=== PATIENT | female | born 1960 | race Two or more races ===

== ENCOUNTER → 2017-08-19 | Emergency (ER) | payer OTHER ==
[~2017-08-19] VITALS: Ht 157.5 cm; Wt 54.4 kg
[~2017-08-19] MED LIST: CIPRO500 MG PO; DOLOGEN CAPLET1 EACH PO; KETO10TA2 PO; VASOTEC5 MG PO
== END | disposition home or self-care (01) ==
LOC: ER 01:23
DX: N39.0 Urinary tract infection, site not specified (principal); R10.31 Right lower quadrant pain

== ENCOUNTER 2017-11-19 08:42 | Outpatient (CLI) | payer OTHER | END 2017-11-19 08:57 | disposition home or self-care (01) | LOC: MAMO-SONO 08:42 → RAD 08:42 | DX: Z12.31 Encounter for screening mammogram for malignant neoplasm of breast (principal); N60.19 Diffuse cystic mastopathy of unspecified breast; R10.30 Lower abdominal pain, unspecified; E04.1 Nontoxic single thyroid nodule; D12.0 Benign neoplasm of cecum; C18.0 Malignant neoplasm of cecum; K92.1 Melena; Z86.010 Personal history of colon polyps ==

== ENCOUNTER 2017-11-25 12:15 | Inpatient (IN) | payer OTHER ==
[~2017-11-25] VITALS: Ht 157.5 cm; Wt 40.8 kg
[2017-11-26] MEDS ORDERED: TOPROL XL25 M1 PO (12:47)
[2017-11-26] MEDS ORDERED: CRESTOR10 MG PO (12:47)
[2017-11-26] MEDS ORDERED: VASOTEC2.5 MG PO (12:47)
== END 2017-12-16 12:43 | disposition home or self-care (01) | DRG 329 ==
LOC: SURG 12-02 05:35 → O/R 12-02 05:35 → SURG 12-02 07:00 → SURH 12-02 10:24 → SURG 12-02 12:02
PROVIDERS: Colon & Rectal Surgery
PROC: 07TC4ZZ Resection of Pelvis Lymphatic, Percutaneous Endoscopic Approach (ICD-10-PCS; 2017-12-02)
PROC: 0DTU4ZZ Resection of Omentum, Percutaneous Endoscopic Approach (ICD-10-PCS; 2017-12-02)
PROC: 0DTF4ZZ Resection of Right Large Intestine, Percutaneous Endoscopic Approach (ICD-10-PCS; principal; 2017-12-02 07:00)
PROC: 4A033R1 Measurement of Arterial Saturation, Peripheral, Percutaneous Approach (ICD-10-PCS; 2017-12-05)
PROC: BB24YZZ Computerized Tomography (CT Scan) of Bilateral Lungs using Other Contrast (ICD-10-PCS; 2017-12-05)
PROC: 3E0F7GC Introduction of Other Therapeutic Substance into Respiratory Tract, Via Natural or Artificial Opening (ICD-10-PCS; 2017-12-05)
PROC: 3E0336Z Introduction of Nutritional Substance into Peripheral Vein, Percutaneous Approach (ICD-10-PCS; 2017-12-06)
PROC: BW21ZZZ Computerized Tomography (CT Scan) of Abdomen and Pelvis (ICD-10-PCS; 2017-12-07)
PROC: 02HV33Z Insertion of Infusion Device into Superior Vena Cava, Percutaneous Approach (ICD-10-PCS; 2017-12-08)
DX: D12.0 Benign neoplasm of cecum (principal); A41.9 Sepsis, unspecified organism; N39.0 Urinary tract infection, site not specified; J95.89 Other postprocedural complications and disorders of respiratory system, not elsewhere classified; J98.11 Atelectasis; K56.690 Other partial intestinal obstruction; B37.89 Other sites of candidiasis; D12.1 Benign neoplasm of appendix; D12.2 Benign neoplasm of ascending colon; F17.210 Nicotine dependence, cigarettes, uncomplicated; R09.02 Hypoxemia; B95.2 Enterococcus as the cause of diseases classified elsewhere

== ENCOUNTER 2017-12-17 16:38 | Inpatient (IN) | payer OTHER ==
[~2017-12-17] VITALS: Ht 157.5 cm; Wt 53.5 kg
[~2017-12-17 16:38] MED LIST changes: +CRESTOR10 MG PO; +TOPROL XL25 M1 PO; +VASOTEC2.5 MG PO
[2018-01-02] MEDS ORDERED: CRESTOR10 MG PO (14:54)
[2018-01-02] MEDS ORDERED: TOPROL XL25 M1 PO (14:54)
[2018-01-02] MEDS ORDERED: Intestinex CAP PO (14:54)
[2018-01-02] MEDS ORDERED: PREVACID30 MG PO (14:54)
== END 2018-01-02 15:59 | disposition home or self-care (01) | DRG 390 ==
LOC: ER 16:38 → SEC-K 22:33 → SURG 22:33 → SURH 12-20 10:11 → SURG 12-20 10:24 → SURH 12-20 10:24
PROC: BW21ZZZ Computerized Tomography (CT Scan) of Abdomen and Pelvis (ICD-10-PCS; 2017-12-17)
PROC: 02HV33Z Insertion of Infusion Device into Superior Vena Cava, Percutaneous Approach (ICD-10-PCS; 2017-12-18)
PROC: 3E0436Z Introduction of Nutritional Substance into Central Vein, Percutaneous Approach (ICD-10-PCS; 2017-12-18)
PROC: 0DJD8ZZ Inspection of Lower Intestinal Tract, Via Natural or Artificial Opening Endoscopic (ICD-10-PCS; principal; 2017-12-19)
PROC: 0DB68ZX Excision of Stomach, Via Natural or Artificial Opening Endoscopic, Diagnostic (ICD-10-PCS; 2017-12-24)
DX: K91.31 Postprocedural partial intestinal obstruction (principal); Y83.6 Removal of other organ (partial) (total) as the cause of abnormal reaction of the patient, or of later complication, without mention of misadventure at the time of the procedure; Y92.098 Other place in other non-institutional residence as the place of occurrence of the external cause; I11.9 Hypertensive heart disease without heart failure; F17.210 Nicotine dependence, cigarettes, uncomplicated; R09.02 Hypoxemia; K25.9 Gastric ulcer, unspecified as acute or chronic, without hemorrhage or perforation; J00 Acute nasopharyngitis [common cold]; K52.89 Other specified noninfective gastroenteritis and colitis

== ENCOUNTER 2018-01-22 18:29 | Inpatient (IN) | payer OTHER ==
[~2018-01-22] VITALS: Ht 160 cm; Wt 59.0 kg
[~2018-01-22 18:29] MED LIST changes: -VASOTEC2.5 MG
[2018-01-22] MEDS ORDERED: VASOTEC2.5 MG (19:13)
[2018-04-13] MEDS ORDERED: TOPROL XL25 M1 PO (14:20)
[2018-04-13] MEDS ORDERED: IMODIUM A-D2 M2 PO (14:20)
[2018-04-13] MEDS ORDERED: PYRIDOXINE HCL100 M1 PO (14:20)
[2018-04-13] MEDS ORDERED: PROTONIX40 MG PO (14:20)
[2018-04-13] MEDS ORDERED: CHOLESTYRAMINE P4 GM PO (14:20)
[2018-04-13] MEDS ORDERED: Intestinex CAP PO (14:20)
[2018-04-13] MEDS ORDERED: SLOW-MAG64 M1 PO (14:20)
[2018-04-13] MEDS ORDERED: FOLIC ACID1 MG PO (14:20)
[2018-04-13] MEDS ORDERED: PRE PROTEIN 2030 ML PO (14:20)
[2018-04-13] MEDS ORDERED: CEFDINIR300 MG PO (14:20)
[2018-04-13] MEDS ORDERED: MOTOFEN 1-0.021 EACH PO (14:20)
[2018-04-13] MEDS ORDERED: VASOTEC2.5 MG PO (14:20)
== END 2018-04-13 15:12 | disposition home or self-care (01) | DRG 329 ==
LOC: ER 18:29 → SURH 19:50 → SEC-K 19:50 → MEDJ 21:49 → SURH 01-23 19:50
PROVIDERS: Colon & Rectal Surgery
PROC: 02HV33Z Insertion of Infusion Device into Superior Vena Cava, Percutaneous Approach (ICD-10-PCS; 2018-01-23)
PROC: 0W9G30Z Drainage of Peritoneal Cavity with Drainage Device, Percutaneous Approach (ICD-10-PCS; 2018-01-24)
PROC: 8E0ZXY6 Isolation (ICD-10-PCS; 2018-01-26)
PROC: BW25Y0Z Computerized Tomography (CT Scan) of Chest, Abdomen and Pelvis using Other Contrast, Unenhanced and Enhanced (ICD-10-PCS; 2018-01-29)
PROC: 3E0436Z Introduction of Nutritional Substance into Central Vein, Percutaneous Approach (ICD-10-PCS; 2018-01-30)
PROC: BW25Y0Z Computerized Tomography (CT Scan) of Chest, Abdomen and Pelvis using Other Contrast, Unenhanced and Enhanced (ICD-10-PCS; 2018-02-05)
PROC: BW11YZZ Fluoroscopy of Abdomen and Pelvis using Other Contrast (ICD-10-PCS; 2018-02-11)
PROC: BW21Y0Z Computerized Tomography (CT Scan) of Abdomen and Pelvis using Other Contrast, Unenhanced and Enhanced (ICD-10-PCS; 2018-02-12)
PROC: 0D1B4Z4 Bypass Ileum to Cutaneous, Percutaneous Endoscopic Approach (ICD-10-PCS; 2018-02-24)
PROC: 0DTE4ZZ Resection of Large Intestine, Percutaneous Endoscopic Approach (ICD-10-PCS; principal; 2018-02-24 14:30)
PROC: 02H633Z Insertion of Infusion Device into Right Atrium, Percutaneous Approach (ICD-10-PCS; 2018-02-26)
PROC: BW25Y0Z Computerized Tomography (CT Scan) of Chest, Abdomen and Pelvis using Other Contrast, Unenhanced and Enhanced (ICD-10-PCS; 2018-03-05)
PROC: 0W9G30Z Drainage of Peritoneal Cavity with Drainage Device, Percutaneous Approach (ICD-10-PCS; 2018-03-07)
PROC: BW25Y0Z Computerized Tomography (CT Scan) of Chest, Abdomen and Pelvis using Other Contrast, Unenhanced and Enhanced (ICD-10-PCS; 2018-03-12)
PROC: BD14YZZ Fluoroscopy of Colon using Other Contrast (ICD-10-PCS; 2018-03-25)
PROC: BW40ZZZ Ultrasonography of Abdomen (ICD-10-PCS; 2018-03-30)
PROC: 0DQB4ZZ Repair Ileum, Percutaneous Endoscopic Approach (ICD-10-PCS; 2018-04-02)
PROC: BW25Y0Z Computerized Tomography (CT Scan) of Chest, Abdomen and Pelvis using Other Contrast, Unenhanced and Enhanced (ICD-10-PCS; 2018-04-06)
PROC: 0W9J3ZX Drainage of Pelvic Cavity, Percutaneous Approach, Diagnostic (ICD-10-PCS; 2018-04-09)
DX: K91.89 Other postprocedural complications and disorders of digestive system (principal); K65.1 Peritoneal abscess; T81.4XXA Infection following a procedure, initial encounter; B37.89 Other sites of candidiasis; K63.2 Fistula of intestine; B37.49 Other urogenital candidiasis; L02.211 Cutaneous abscess of abdominal wall; Y83.6 Removal of other organ (partial) (total) as the cause of abnormal reaction of the patient, or of later complication, without mention of misadventure at the time of the procedure; Y92.098 Other place in other non-institutional residence as the place of occurrence of the external cause; Z90.49 Acquired absence of other specified parts of digestive tract; F17.210 Nicotine dependence, cigarettes, uncomplicated; I11.9 Hypertensive heart disease without heart failure; B96.1 Klebsiella pneumoniae [K. pneumoniae] as the cause of diseases classified elsewhere; B96.4 Proteus (mirabilis) (morganii) as the cause of diseases classified elsewhere; B95.2 Enterococcus as the cause of diseases classified elsewhere; K25.9 Gastric ulcer, unspecified as acute or chronic, without hemorrhage or perforation; E88.09 Other disorders of plasma-protein metabolism, not elsewhere classified; R33.8 Other retention of urine; K52.89 Other specified noninfective gastroenteritis and colitis; D64.89 Other specified anemias

== ENCOUNTER → 2018-01-22 | Outpatient (CLI) | payer OTHER ==
[~2018-01-22] MED LIST changes: +Intestinex CAP PO; +PREVACID30 MG PO; +VASOTEC2.5 MG
== END | disposition home or self-care (01) ==
LOC: TOM 09:39
DX: R10.31 Right lower quadrant pain (principal); Z86.010 Personal history of colon polyps; K25.3 Acute gastric ulcer without hemorrhage or perforation; R19.7 Diarrhea, unspecified

== ENCOUNTER → 2018-05-29 09:03 | Outpatient (CLI) | payer OTHER ==
[~2018-05-29 09:03] MED LIST changes: +CEFDINIR300 MG PO; +CHOLESTYRAMINE P4 GM PO; +FOLIC ACID1 MG PO; +IMODIUM A-D2 M2 PO; +MOTOFEN 1-0.021 EACH PO; +PRE PROTEIN 2030 ML PO; +PROTONIX40 MG PO; +PYRIDOXINE HCL100 M1 PO; +SLOW-MAG64 M1 PO; +VASOTEC2.5 MG
== END | disposition home or self-care (01) ==
LOC: LAB 09:03
DX: I11.9 Hypertensive heart disease without heart failure (principal); E11.9 Type 2 diabetes mellitus without complications; K65.1 Peritoneal abscess; K91.89 Other postprocedural complications and disorders of digestive system

== ENCOUNTER 2018-05-29 11:17 | Outpatient (CLI) | payer OTHER | END 2018-05-29 11:41 | disposition home or self-care (01) | LOC: TOM 11:17 | DX: K65.1 Peritoneal abscess (principal); K91.89 Other postprocedural complications and disorders of digestive system ==

== ENCOUNTER 2018-06-30 09:12 | Outpatient (CLI) | payer OTHER | END 2018-06-30 09:28 | disposition home or self-care (01) | LOC: NUCLEAR 09:12 | DX: C90.00 Multiple myeloma not having achieved remission (principal); M19.90 Unspecified osteoarthritis, unspecified site; M81.0 Age-related osteoporosis without current pathological fracture | CPT/HCPCS: 77080; 78306; A9503 ==

== ENCOUNTER 2018-11-04 07:47 | Outpatient (CLI) | payer OTHER ==
[~2018-11-04] VITALS: Ht 157.5 cm; Wt 54.4 kg
[2018-11-04] MEDS ORDERED: FLONASE16 GM NASAL (09:28)
[2018-11-04] MEDS ORDERED: CLARITIN10 MG PO (09:28)
[2018-11-04] MEDS ORDERED: DERMOTIC20 ML OTIC (09:28)
== END 2018-11-04 08:05 | disposition home or self-care (01) ==
LOC: OFIC 805 07:47
DX: L29.9 Pruritus, unspecified (principal); J31.0 Chronic rhinitis

== ENCOUNTER 2018-12-31 12:31 | Outpatient (CLI) | payer OTHER ==
[~2018-12-31 12:31] MED LIST changes: +CLARITIN10 MG PO; +DERMOTIC20 ML OTIC; +FLONASE16 GM NASAL
== END 2019-01-02 10:43 | disposition home or self-care (01) ==
LOC: MAMO-SONO 12:31
DX: Z12.31 Encounter for screening mammogram for malignant neoplasm of breast (principal); N60.19 Diffuse cystic mastopathy of unspecified breast

== ENCOUNTER → 2019-04-23 | Day surgery (SDC) | payer OTHER | END | disposition home or self-care (01) | LOC: ADM 04-19 15:00 → AMB-ENDOS 05:20 | DX: K29.60 Other gastritis without bleeding (principal); K63.5 Polyp of colon; K64.2 Third degree hemorrhoids ==

== ENCOUNTER 2020-08-12 01:32 | Emergency (ER) | payer OTHER ==
[~2020-08-12] VITALS: Ht 157.5 cm; Wt 58.1 kg
[2020-08-12] MEDS ORDERED: KETO10TA2 PO (06:45)
[2020-08-12] MEDS ORDERED: NORFLEX100MG PO (06:45)
[2020-08-12] MEDS ORDERED: HORIZANT300 MG PO (06:45)
== END 2020-08-12 07:00 | disposition home or self-care (01) ==
LOC: ER 01:32
DX: M54.5 Low back pain (principal)

== ENCOUNTER 2021-11-20 19:45 | Emergency (ER) | payer OTHER ==
[~2021-11-20] VITALS: Ht 157.5 cm; Wt 68.9 kg
[~2021-11-20 19:45] MED LIST changes: +HORIZANT300 MG PO; +NORFLEX100MG PO
== END 2021-11-21 00:05 | disposition home or self-care (01) ==
LOC: ER 19:45
DX: N23 Unspecified renal colic (principal); R11.10 Vomiting, unspecified; Z88.2 Allergy status to sulfonamides

== ENCOUNTER 2021-11-28 07:28 | Outpatient (CLI) | payer OTHER | END 2021-11-28 07:30 | disposition home or self-care (01) | LOC: RAD 07:28 | PROVIDERS: ATTEND Urology | DX: Z01.818 Encounter for other preprocedural examination (principal) ==

== ENCOUNTER 2022-07-25 15:55 | Outpatient (CLI) | payer OTHER | END 2022-07-25 16:06 | disposition home or self-care (01) | LOC: TOM 15:55 | PROVIDERS: ATTEND Family Medicine | DX: N20.0 Calculus of kidney (principal) ==

== ENCOUNTER → 2022-07-30 | Outpatient (CLI) | payer OTHER | END | disposition home or self-care (01) | LOC: SONOGRAMA 13:54 | PROVIDERS: ATTEND Family Medicine | DX: N20.2 Calculus of kidney with calculus of ureter (principal) ==

== ENCOUNTER 2023-01-14 08:56 | Outpatient (CLI) | payer OTHER | END 2023-01-14 09:05 | disposition home or self-care (01) | LOC: SONOGRAMA 08:56 | PROVIDERS: ATTEND Internal Medicine | DX: M25.561 Pain in right knee (principal) ==

== ENCOUNTER 2023-10-23 08:15 | Outpatient (CLI) | payer OTHER | END 2023-10-23 08:25 | disposition home or self-care (01) | LOC: SONOGRAMA 08:15 | PROVIDERS: ATTEND Family Medicine | DX: M77.11 Lateral epicondylitis, right elbow (principal) ==

== ENCOUNTER 2024-09-29 07:33 | Outpatient (CLI) | payer OTHER | END 2024-09-29 07:40 | disposition home or self-care (01) | LOC: MAMO-SONO 07:33 | PROVIDERS: ATTEND Family Medicine | DX: N60.11 Diffuse cystic mastopathy of right breast (principal); N60.12 Diffuse cystic mastopathy of left breast; R10.84 Generalized abdominal pain; K43.2 Incisional hernia without obstruction or gangrene ==

== ENCOUNTER 2024-10-08 12:48 | Outpatient (CLI) | payer OTHER | END 2024-10-08 12:49 | disposition home or self-care (01) | LOC: NUCLEAR 12:48 | PROVIDERS: ATTEND Family Medicine | DX: M85.80 Other specified disorders of bone density and structure, unspecified site (principal); M81.0 Age-related osteoporosis without current pathological fracture ==